=== PATIENT | male | born 1995 | race African-American/Black ===

== ENCOUNTER 2021-08-03 09:22 | Emergency (ER) | payer OTHER ==
[~2021-08-03] VITALS: Ht 182.9 cm; Wt 67.9 kg
[2021-08-03] MEDS ORDERED: KETOROLAC 30 MG/ML VIAL. IVP ONE (09:45)
[2021-08-03] MEDS ORDERED: ONDANSETRON PF 4 MG/2 ML VIAL. IVP ONE (09:45)
[2021-08-03] MEDS ORDERED: IV NORMAL SALINE 1000ML BAG 1,000 ML IV ONE (09:45)
[2021-08-03] MEDS ORDERED: FAMOTIDINE 20 MG/2 ML VIAL IVP ONE (09:45)
[2021-08-03] MEDS ORDERED: KETOROLAC 30 MG/ML VIAL. ONE (09:49)
--- NOTE | 2021-08-03 10:05 | PHYS DOC ---
Past Medical History Past Medical History: No Pertinent History Past Surgical History: Other Additional Past Surgical Histo: dental surgery Smoking Status: Never Smoker Alcohol Use: None Drug Use: None General Adult EDM: Chief Complaint: ABDOMINAL PAIN HPI: HPI: Patient is a 26-year-old male who presents to the emergency department complaining of waking up this morning at approximately 2 AM with nausea vomiting and diarrhea. Patient states he believes he may have eaten undercooked chicken with rice and broccoli yesterday evening at approximately 7 PM. Patient reports greater than 10 episodes of vomiting with diarrhea each time. Patient denies seeing blood in his vomitus or his stool. Patient describes food particles in his vomitus the first few times and reporting retching. Describes his diarrhea as watery brown. Reports 6 out of 10 abdominal pain that is mostly in his epigastric area, does not radiate. Describes his pain as cramping and burning. Reports shaking with chills, denies fever. Patient denies lower abdominal discomfort, denies testicular pain. States his vomitus does not look like coffee grounds. States he has not eaten or drink any fluids since 7 PM yesterday when he last ate. Patient denies chest pain, chest palpitations, chest or nasal congestion. Patient denies diaphoretic episodes, denies dizziness, denies syncopal or near syncopal episodes. States his vomiting comes in waves. Denies anything making his symptoms worse or better. Has not taken medications for his abdominal discomfort nausea vomiting or diarrhea. Denies surgical history. States he takes Zyrtec in the evenings for seasonal allergies, does not smoke cigarettes, occasionally drinks alcohol, did not drink alcohol last night, states he smokes marijuana occasionally, has not smoked marijuana in the past few days. Denies a family history of diabetes, denies a family history of sudden cardiac . Patient denies other physical complaints or physical concerns. Review of Systems: Review of Systems: 14 body systems of review of systems have been reviewed. See HPI for pertinent positives and negative responses, otherwise all other systems are negative, nonpertinent or noncontributory. Constitutional: Negative except as outlined in HPI above. Skin: Negative except as outlined in HPI above. Eyes: Negative except as outlined in HPI above. HENT: Negative except as outlined in HPI above. Respiratory: Negative except as outlined in HPI above. Cardiovascular: Negative except as outlined in HPI above. GI: Negative except as outlined in HPI above. : Negative except as outlined in HPI above. Musculoskeletal: Negative except as outlined in HPI above. Integument: Negative except as outlined in HPI above. Neurologic: Negative except as outlined in HPI above. Endocrine: Negative except as outlined in HPI above. Lymphatic: Negative except as outlined in HPI above. Psychiatric: Negative except as outlined in HPI above. Heart Score: C/O Chest Pain: No Risk Factors: Risk Factors: DM, Current or recent (<one month) smoker, HTN, HLP, family history of CAD, obesity. Risk Scores: Score 0 - 3: 2.5% MACE over next 6 weeks - Discharge Home Score 4 - 6: 20.3% MACE over next 6 weeks - Admit for Clinical Observation Score 7 - 10: 72.7% MACE over next 6 weeks - Early Invasive Strategies Current Medications: Patient reports taking [id number] Zyrtec in the evening for seasonal allergies. Current Medications Medications (Trade) Dose Ordered Sig/Connie Start Time Stop Time Status Last Admin Dose Admin Famotidine (Pepcid Vial) 40 mg 1X ONCE 08/03/21 09:45 08/03/21 09:46 UNV Ketorolac Tromethamine (Toradol 30mg Vial) 30 mg 1X ONCE 08/03/21 09:45 08/03/21 09:46 UNV Ondansetron HCl (Zofran) 4 mg 1X ONCE 08/03/21 09:45 08/03/21 09:46 UNV Sodium Chloride 1,000 ml @ 1,000 mls/hr 1X ONCE 08/03/21 09:45 08/03/21 10:44 UNV Allergies: Allergies: Allergies Coded Allergies Type Severity Reaction Last Updated Verified No Known Drug Allergies 08/03/21 No Physical Exam: PE: Constitutional: Well developed, well nourished, non-toxic appearance. Patient dry heaving in vomitus bag, spitting up clear saliva. Patient appears uncomfortable. HENT: Normocephalic, atraumatic. Oral mucosa sticky, oropharynx nonerythematous, no deep tissue infectious process appreciated, there is no lymphadenopathy of the head or neck appreciated, bilateral TMs intact and within normal limits. Eyes: Conjunctiva normal, no discharge. No scleral icterus. Neck: Normal range of motion, no stridor. There is no nuchal rigidity, no meningismus signs. Cardiovascular: No cyanosis appreciated, distal cap refill less than 2 seconds. Heart rate bradycardic, 54 bpm during examination, heart sounds S1-S2. Lungs & Thorax: Patient is in no respiratory distress, lung sounds are clear to auscultation all lung العلي. Abdomen: Abdomen is flat, no surgical scars present, pain to palpation at epigastric area, there is no specific Pace sign, no rebound tenderness, no McBurney's point tenderness, negative psoas sign. No masses no megaly appreciated to palpation. Skin: Warm, dry, no erythema, no rash. Back: No tenderness, no deformities. Extremities: No tenderness, no cyanosis, no clubbing, ROM intact, no edema. Neurologic: Alert and oriented X 3, normal motor function, normal sensory function, no focal deficits noted. Psychologic: Affect normal, judgement normal, mood normal. Current Patient Data: Vital Signs: Vital Signs Date Time Temp Pulse Resp B/P (MAP) Pulse Ox O2 Delivery O2 Flow Rate FiO2 08/03/21 09:27 97.9 55 28 169/74 (105) 100 Room Air 97.9 EKG: EKG: EKG performed at 1230 by ED nursing staff shows a normal sinus rhythm with no other ectopy appreciated, heart rate 63 bpm, MO interval 0.140, QTc interval 0.445, no acute STEMI, no ACS, no acute ischemia appreciated, EKG interpreted by ED attending physician Dr. Forbes. Radiology/Procedures: Radiology/Procedures: REASON: Epigastric pain, nausea, vomiting, diarrhea. PROCEDURE: ACUTE ABDOMEN SERIES XR ABDOMEN COMP ACUTE History: Epigastric pain, nausea, vomiting, diarrhea. Comparison: None. Technique: Frontal chest with upright and supine radiographs of the abdomen and pelvis. Findings: Chest: Clear lungs. Normal cardiomediastinal silhouette. Bowel gas pattern: Normal. Free air: None. Abnormal calcifications: None. Bones: No acute findings. Other: None. Impression: 1. Clear lungs. 2. Nonobstructive bowel gas pattern. No acute abdominal findings. Electronically signed by: Andry Garcia MD (08/03/2021 12:08 PM) [id number] Course & Med Decision Making: Course & Med Decision Making Pertinent Labs and Imaging studies reviewed. (See chart for details) 26-year-old male, vital signs reviewed, presents to the emergency department concerning nausea vomiting diarrhea since 2 AM this morning. Physical ex amination suspicious for food poisoning, patient does have bradycardic presentation heart rate between 52 and 55 during examination, denies chest pain, upon review of previous ED visits, patient's resting heart rate in the mid 60s, with patient retching during physical exam there is a suspicion of a vasovagal effect on heart rate however will order EKG, troponin I. Will order CBC, CMP, lipase, 1 L normal saline bolus, nausea medication, IV Pepcid, IV pain medication, urinalysis assay. Acute abdomen x-ray imaging. Patient's serum lab work unremarkable, patient continues to have 4-5 over 10 abdominal discomfort and reports continued nausea, will give IV morphine, IV Reglan for symptoms. Patient is EKG is unremarkable, the patient's urine is not infected, patient's high-sensitivity troponin I is nonconcerning. X-ray imaging is nonconcerning. Upon reevaluation of the patient, patient reports he feels "100% better.. I am ready to go home now". Patient did not have any vomiting nor diarrhea episodes in the emergency department. Discussed all findings with patient, reviewed follow-up with primary care physician for ongoing symptoms, return to ER precautions and concerns, patient gave verbal understanding of and is amenable to ED discharge planning. Discussed with the patient all findings and diagnostic testing as well as the need to follow-up with their primary care provider for further evaluation and treatment or return to the ED if any new or worsening symptoms. Strict return precautions were also discussed at length, the patient voiced understanding and agreement with the discharge planning. The patient was nontoxic in appearance, in no apparent distress, and hemodynamically stable at the time of disposition. Dragon Disclaimer: Dragon Disclaimer: This electronic medical record was generated, in whole or in part, using a voice recognition dictation system. Departure Departure Impression: Primary Impression: Nausea vomiting and diarrhea Disposition: HOME / SELF CARE / HOMELESS Condition: GOOD Referrals: RENETTA DAVIS MD (PCP) Patient Instructions: Diarrhea, Nausea and Vomiting Additional Instructions: You were seen today in the emergency department for nausea vomiting and diarrhea. Your lab work did not show any concerning findings. You were treated today with IV fluids antinausea medication and pain medication. An x-ray did not show any concerning findings. You indicated you had relief of symptoms from your treatment in the emergency department. I will prescribe a few antinausea medication tablets to take at home in the event your nausea does return otherwise you do not need to take this medication. Please continue to hydrate well. Follow-up with your primary care physician this week for ongoing symptoms. Return to the emergency department for worsening symptoms or other concerns. Thank you for visiting our Emergency Department. It was a pleasure taking care of you today in the emergency department and we appreciate you trusting us with your care. If any additional problems come up don't hesitate to return to visit us. Please follow up with your primary care provider so they can plan additional care if needed and know about the problem that you had. If symptoms worsen come back to the Emergency Department. Any concerning symptoms that start such as chest pain, shortness of air, weakness or numbness on one side of the body, running high fevers or any other concerning symptoms return to the ER. Scripts Ondansetron (ONDANSETRON ODT) 4 Mg Tab.rapdis 1 TAB PO PRN Q6-8HRS for nausea, #16 TAB 0 Refills Prov: YIN KING APRN 08/03/21 YIN KING APRN Aug 03, 2021 10:05
[2021-08-03 10:34] LABS: CALCIUM 9.9 mg/dL (8.5-10.1); CREATININE 1.1 mg/dL (0.7-1.3); GFR 97.2; POTASSIUM 4.3 mmol/L (3.5-5.1)
[2021-08-03 10:37] LABS: BASO % 0 % (0-3); EOS % 0 % (0-3); HEMATOCRIT 46.3 % (39.0-53.0); HEMOGLOBIN 15.2 g/dL (13.0-17.5); LYMPH # 0.8 x10^3/uL (1.0-4.8); LYMPH % 5 % (24-48); MEAN CORPUSCULAR HEMOGLOBIN 32 pg (25-35); MEAN CORPUSCULAR HGB CONC 33 g/dL (31-37); MEAN CORPUSCULAR VOLUME 98 fL (79-100); MONO # 0.9 x10^3/uL (0.0-1.1); MONO % 6 % (0-9); NEUT # 13.6 x10^3/uL (1.8-7.7); NEUT % 88 % (31-73); PLATELET COUNT 215 x10^3/uL (140-400); RED BLOOD COUNT 4.75 x10^6/uL (4.30-5.70); RED CELL DISTRIBUTION WIDTH 12.9 % (11.5-14.5); WHITE BLOOD COUNT 15.4 x10^3/uL (4.0-11.0)
[2021-08-03 10:40] LABS: ALBUMIN 4.8 g/dL (3.4-5.0); ALBUMIN/GLOBULIN RATIO 1.2 (1.0-1.7); TOTAL BILIRUBIN 0.5 mg/dL (0.2-1.0); TOTAL PROTEIN 8.7 g/dL (6.4-8.2)
[2021-08-03] MEDS ORDERED: METOCLOPRAMIDE HCL 10 MG/2 ML VIAL. IVP ONE (11:00)
[2021-08-03] MEDS ORDERED: MORPHINE SULFATE 4 MG/ML INJ. IVP ONE (11:00)
[2021-08-03 11:01] LABS: % BANDS 2 % (0-9); % LYMPHS 6 % (24-48); % MONOS 3 % (0-10); % SEGS 89 % (35-66)
[2021-08-03 11:02] LABS: PLT ESTIMATE ADEQUATE (ADEQUATE)
[2021-08-03 11:14] LABS: BACTERIA,URINE FEW /HPF (0-FEW); RBC,URINE OCC /HPF (0-2); WBC,URINE OC /HPF (0-4)
--- NOTE | 2021-08-03 12:10 | RAD ---
XR ABDOMEN COMP ACUTE History: Epigastric pain, nausea, vomiting, diarrhea. Comparison: None. Technique: Frontal chest with upright and supine radiographs of the abdomen and pelvis. Findings: Chest: Clear lungs. Normal cardiomediastinal silhouette. Bowel gas pattern: Normal. Free air: None. Abnormal calcifications: None. Bones: No acute findings. Other: None. Impression: 1. Clear lungs. 2. Nonobstructive bowel gas pattern. No acute abdominal findings. Electronically signed by: Andry Garcia MD (08/03/2021 12:08 PM) [id number]
[2021-08-03] MEDS ORDERED: ONDA4TAB12 PO (12:36)
[2021-08-03 13:06] VITALS: BP 108/51
--- NOTE | 2021-08-03 13:28 | EKG ---
[facility] [address] [place] [address] Test Date: 2021-08-03 Test Time: 12:30:55 Pat Name: ANAMARIA HALL Department: Room: Gender: M [employer]: : 1995 Requested By: YIN KING Order Number: [id number] Reading MD: Gabriel Reddy Measurements Intervals [place] Rate: 63 P: [place]: QRS: 66 QRSD: 86 T: 49 QT: 432 QTc: 445 Interpretive Statements SINUS RHYTHM Electronically Signed On 08-05-2021 21:28:59 CDT by Gabriel Reddy
== END 2021-08-03 13:33 | disposition home or self-care (01) ==
LOC: ER 09:22
DX: R11.2 Nausea with vomiting, unspecified (principal); R19.7 Diarrhea, unspecified; R10.13 Epigastric pain
CPT/HCPCS: 36415; 74022; 80053; 81001; 83690; 84484; 85007; 85025; 93005; 96361; 96374; 96375; 99285; J1885; J2270; J2405; J2765; J3490; J7030